=== PATIENT | female | born 1975 | race Caucasian/White ===

== ENCOUNTER 2024-11-30 15:12 | Outpatient (CLI) | payer OTHER | END 2024-11-30 15:13 | disposition home or self-care (01) | LOC: CSHLAB 15:12 | PROVIDERS: ATTEND Obstetrics & Gynecology | DX: Z01.818 Encounter for other preprocedural examination (principal); N92.1 Excessive and frequent menstruation with irregular cycle | CPT/HCPCS: 80048; 84703; 85027; 86850; 86900; 86901; 93005; 93010 ==

== ENCOUNTER 2024-12-04 07:16 | Observation (INO) | payer OTHER ==
[2024-11-30 16:08] LABS: BHCG - Serum Negative (NEGATIVE); Pregs Control Background? CLEAR/WHITE (CLR/WHITE); Pregs Control Bar Appear? YES (CONTROL BAR)
[2024-11-30 16:12] LABS: Anion Gap 15 mmol/L (10-20); BUN (Urea Nitrogen) 12 mg/dL (7.0-18.7); Calc. Creatinine Clearance 0 mL/min (70-130); Calcium 8.8 mg/dL (7.8-10.44); Carbon Dioxide 21 mmol/L (22-29); Chloride 105 mmol/L (98-107); Glucose 218 mg/dL (70-105); Hematocrit 43.6 % (34.9-44.5); Hemoglobin 15.2 g/dL (12.0-15.5); Mean Corpuscular Hemoglobin 31.9 pg (27.0-33.0); Mean Corpuscular Volume 91.6 fL (81.6-98.3); Platelet Count 286 10x3/uL (150-450); Potassium 3.8 mmol/L (3.5-5.1); Red Blood Cell (RBC) Count 4.76 10x6/uL (3.90-5.03); Sodium 137 mmol/L (136-145); White Blood Cell (WBC) Count 9.34 10x3/uL (3.5-10.5)
[2024-12-04] MEDS ORDERED: CEFAZOLIN 2 GM VIAL ONE (08:11)
[2024-12-04] MEDS ORDERED: Gabapentin 300 MG CAP ONE (08:11)
[2024-12-04] MEDS ORDERED: metroNIDAZOLE 500 MG (100 mL) BAG ONE (08:12)
[2024-12-04] MEDS ORDERED: Famotidine/PF 20 mg/2ml Vial ONE ×2 (08:13)
[2024-12-04] MEDS ORDERED: Bupivacaine HCl 0.5%/Epinephrine 1:200,000/PF 30 ml Vial ONE (08:21)
[2024-12-04] MEDS ORDERED: PROPOFOL 20 ML ONE (08:29)
[2024-12-04] MEDS ORDERED: Ondansetron PF 4 MG/2 ML Vial ONE ×2 (09:35→11:50)
[2024-12-04] MEDS ORDERED: SUGAMMADEX SODIUM 200 MG/2 ML VIAL ONE (10:07)
[2024-12-04] MEDS ORDERED: HYDROmorphone 0.5 MG/0.5 ML SYRINGE ONE ×2 (10:44→11:03)
[2024-12-04] MEDS ORDERED: HYDROcodone/Acetaminophen 5/325 mg Tablet ONE (11:44)
[2024-12-04] MEDS ORDERED: Metoclopramide HCl 10 MG (2 mL) VIAL ONE (14:36)
[2024-12-04] MEDS ORDERED: Simethicone Chewable 80 MG TAB PO PRN (15:42)
[2024-12-04] MEDS ORDERED: Ondansetron PF 4 MG/2 ML Vial IVP PRN (15:42)
[2024-12-04] MEDS ORDERED: HYDROcodone/Acetaminophen 5/325 mg Tablet PO PRN ×2 (15:42)
[2024-12-04 17:44] VITALS: BMI 38.2
[2024-12-04] MEDS: Ketorolac Tromethamine 30 MG (1 mL) VIAL IVP SCH (18:28)
[2024-12-04] MEDS: glipiZIDE 5 MG TAB PO SCH (18:30)
[2024-12-04] MEDS: Metoclopramide HCl 10 MG (2 mL) VIAL IVP SCH (21:36)
[2024-12-05 04:23] LABS: Hematocrit 36.5 % (34.9-44.5); Hemoglobin 12.4 g/dL (12.0-15.5); Mean Corpuscular Hemoglobin 31.6 pg (27.0-33.0); Mean Corpuscular Volume 92.9 fL (81.6-98.3); Platelet Count 221 10x3/uL (150-450); Red Blood Cell (RBC) Count 3.93 10x6/uL (3.90-5.03); White Blood Cell (WBC) Count 9.86 10x3/uL (3.5-10.5)
[2024-12-05] MEDS ORDERED: glipiZIDE 5 MG TAB PO SCH (08:00)
== END 2024-12-05 08:44 | disposition home or self-care (01) ==
LOC: CSHSDC 07:16 → CSHTELE 15:42
PROVIDERS: ADMIT Obstetrics & Gynecology; ATTEND Obstetrics & Gynecology
PROC: 0UT94ZZ Resection of Uterus, Percutaneous Endoscopic Approach (ICD-10-PCS; principal; 2024-12-04)
DX: N92.1 Excessive and frequent menstruation with irregular cycle (principal); N88.8 Other specified noninflammatory disorders of cervix uteri; N80.03 Adenomyosis of the uterus; N94.89 Other specified conditions associated with female genital organs and menstrual cycle; I10 Essential (primary) hypertension; E78.5 Hyperlipidemia, unspecified; E11.9 Type 2 diabetes mellitus without complications; Z79.899 Other long term (current) drug therapy; Z79.84 Long term (current) use of oral hypoglycemic drugs; Z91.041 Radiographic dye allergy status
CPT/HCPCS: 36415; 36416; 80048; 84703; 85027; 86850; 86900; 86901; 88307; C9250-JZ; J1100; J1171; J1308; J1885; J2405; J2550; J2704; J2765; J3010; J7030; S2900

== ENCOUNTER 2025-03-05 07:03 | Emergency (ER) | payer OTHER ==
[2025-03-05] MEDS ORDERED: diphenhydrAMINE 50 MG/ML VIAL ONE (07:43)
[2025-03-05] MEDS ORDERED: Metoclopramide HCl 10 MG (2 mL) VIAL ONE (07:43)
[2025-03-05] MEDS ORDERED: Ketorolac Tromethamine 30 MG (1 mL) VIAL ONE (07:44)
[2025-03-05] MEDS ORDERED: Dexamethasone 10 MG/ML VIAL ONE (07:44)
[2025-03-05 07:50] LABS: #Basophils 0.04 10x3/uL (0.0-0.2); #Eosinophils 0.16 10x3/uL (0.0-0.5); #Monocytes 0.68 10x3/uL (0.0-1.1); #Neutrophils 3.85 10x3/uL (1.5-8.4); %Basophils 0.6 % (0.0-2.0); %Eosinophils 2.4 % (0.0-6.0); %Lymphocytes 27.8 % (18.0-47.0); %Monocytes 10.3 % (0.0-10.0); %Neutrophils 58.1 % (40.0-75.0); Hematocrit 42.2 % (34.9-44.5); Hemoglobin 14.7 g/dL (12.0-15.5); Mean Corpuscular Hemoglobin 32.0 pg (27.0-33.0); Mean Corpuscular Volume 91.7 fL (81.6-98.3); Platelet Count 246 10x3/uL (150-450); Red Blood Cell (RBC) Count 4.60 10x6/uL (3.90-5.03); White Blood Cell (WBC) Count 6.62 10x3/uL (3.5-10.5)
[2025-03-05 08:08] LABS: ALT (SGPT) 21 U/L (Less than 34); AST (SGOT) 27 U/L (11-34); Albumin 3.9 g/dL (3.1-4.5); Alkaline Phosphatase 73 U/L (40-110); Anion Gap 11 mmol/L (10-20); BUN (Urea Nitrogen) 10 mg/dL (7.0-18.7); Bilirubin, Total 0.4 mg/dL (0.3-1.2); Calc. Creatinine Clearance 0 mL/min (70-130); Calcium 8.6 mg/dL (7.8-10.44); Carbon Dioxide 24 mmol/L (22-29); Chloride 106 mmol/L (98-107); Globulin 2.9 g/dL (2.4-3.5); Glucose 201 mg/dL (70-105); Potassium 4.1 mmol/L (3.5-5.1)
[2025-03-05 08:10] LABS: Sodium 137 mmol/L (136-145)
== END 2025-03-05 09:04 | disposition home or self-care (01) ==
LOC: CSHERS 07:03
DX: R51.9 Headache, unspecified (principal); I10 Essential (primary) hypertension; E11.9 Type 2 diabetes mellitus without complications; Z79.899 Other long term (current) drug therapy; Z79.84 Long term (current) use of oral hypoglycemic drugs
CPT/HCPCS: 36415; 70450; 80053; 85025; 96374; 96375; J1100; J1200; J1885; J2765